=== PATIENT | male | born 1955 | race Caucasian/White ===

== ENCOUNTER 2017-10-10 15:12 | Emergency (ER) | payer MEDICAID ==
[~2017-10-10] VITALS: Ht 177.8 cm; Wt 179.6 kg
[~2017-10-10 15:12] MED LIST: ALBU8.5H8 IH; COMIN IH; DABI150C PO; DULO20CA50 PO; FURO-150 PO; GUAI120015 PO; GUAI120018 PO; HYDR-3566 PO; HYDR50TA3 PO; INSU100V2 SUBCUT; LANTUS SQ; LOSA50TA3 PO; METO25TA6 PO; OMEP20TA5 PO; PANT-47 PO; POTA8TAB3 PO; SPIIN IH; ZOLP10TA5 PO
[2017-10-10] MEDS ORDERED: ACYC-202 PO (17:20)
[2017-10-10] MEDS ORDERED: HYDR-568 PO (17:20)
[2017-10-10] MEDS ORDERED: [UNRECOGNIZED DRUG - OTHER] TOP (17:23)
[2017-10-10 17:31] VITALS: BP 144/64
== END 2017-10-10 17:32 | disposition home or self-care (01) ==
LOC: ER 15:13
DX: B02.9 Zoster without complications (principal); I10 Essential (primary) hypertension; I48.91 Unspecified atrial fibrillation; E78.00 Pure hypercholesterolemia, unspecified; J44.9 Chronic obstructive pulmonary disease, unspecified; E11.9 Type 2 diabetes mellitus without complications; Z79.4 Long term (current) use of insulin
CPT/HCPCS: 99283

== ENCOUNTER 2018-03-15 09:09 | Day surgery (SDC) | payer MEDICAID ==
[~2018-03-15] VITALS: Ht 177.8 cm; Wt 128.6 kg
[~2018-03-15 09:09] MED LIST changes: +[UNRECOGNIZED DRUG - OTHER] TOP
[2018-03-15 09:22] VITALS: BP 162/94
[2018-03-15] MEDS ORDERED: TIOT18CA3 (09:36)
[2018-03-15] MEDS ORDERED: DILT120C52 (09:37)
[2018-03-15] MEDS ORDERED: CARV12.5 PO (09:38)
[2018-03-15] MEDS ORDERED: DIPH25CA6 PO (09:39)
[2018-03-15] MEDS ORDERED: MIDAZolam 5mg/5ml vial ONE ×2 (09:44→09:47)
[2018-03-15] MEDS ORDERED: fentaNYL/PF 50MCG/1 ML 2ML syringe ONE ×3 (09:44→10:15)
[2018-03-15] MEDS ORDERED: LIDOcaine Viscous 15ml cup ONE (09:44)
[2018-03-15] MEDS ORDERED: diphenhydrAMINE 50 mg/ml inj ONE (10:22)
[2018-03-15 10:56] VITALS: BP 136/91
[2018-03-15 11:06] VITALS: BP 152/81
[2018-03-15 11:16] VITALS: BP 145/73
[2018-03-15 11:26] VITALS: BP 142/88
== END 2018-03-15 11:38 | disposition home or self-care (01) ==
LOC: GI LAB 09:09
PROVIDERS: ATTEND Internal Medicine Gastroenterology
DX: D12.4 Benign neoplasm of descending colon (principal); D12.3 Benign neoplasm of transverse colon; D12.8 Benign neoplasm of rectum; K56.2 Volvulus; K57.30 Diverticulosis of large intestine without perforation or abscess without bleeding; K64.8 Other hemorrhoids; E66.01 Morbid (severe) obesity due to excess calories; I48.91 Unspecified atrial fibrillation; I11.0 Hypertensive heart disease with heart failure; I50.9 Heart failure, unspecified; J44.9 Chronic obstructive pulmonary disease, unspecified; F17.210 Nicotine dependence, cigarettes, uncomplicated; Z86.010 Personal history of colon polyps; Z98.890 Other specified postprocedural states; Z79.4 Long term (current) use of insulin; Z79.899 Other long term (current) drug therapy
CPT/HCPCS: 45380; 45385; J1200; J2250; J3010; J7030; A4620; G0500

== ENCOUNTER 2018-06-16 12:41 | Emergency (ER) | payer MEDICAID ==
[~2018-06-16] VITALS: Ht 180.3 cm; Wt 164.0 kg
[~2018-06-16 12:41] MED LIST changes: +CARV12.5 PO; +DILT120C52; +DIPH25CA6 PO; -DULO20CA50 PO; -GUAI120015 PO; -HYDR-3566 PO; -INSU100V2 SUBCUT; -METO25TA6 PO; -OMEP20TA5 PO; +TIOT18CA3
[2018-06-16 12:48] VITALS: BP 138/72
[2018-06-16] MEDS ORDERED: HYDR-4383 PO (15:14)
[2018-06-16] MEDS ORDERED: TRAM50TA2 PO (15:16)
== END 2018-06-16 15:41 | disposition home or self-care (01) ==
LOC: ER 12:41
DX: L02.214 Cutaneous abscess of groin (principal); I48.91 Unspecified atrial fibrillation; E78.00 Pure hypercholesterolemia, unspecified; I10 Essential (primary) hypertension; J44.9 Chronic obstructive pulmonary disease, unspecified; E11.9 Type 2 diabetes mellitus without complications; F41.9 Anxiety disorder, unspecified; Z90.49 Acquired absence of other specified parts of digestive tract; Z87.442 Personal history of urinary calculi; Z79.899 Other long term (current) drug therapy; Z79.4 Long term (current) use of insulin
CPT/HCPCS: 10060; 99284

== ENCOUNTER 2018-07-24 15:14 | Emergency (ER) | payer MEDICARE, MEDICAID ==
[~2018-07-24] VITALS: Ht 177.8 cm; Wt 159.0 kg
[2018-07-24 16:08] VITALS: BP 94/60
[2018-07-24] MEDS ORDERED: LIDOcaine 1% 30ml preserv. free vial IJ ONE (18:35)
[2018-07-24] MEDS ORDERED: DOXY100C43 PO (18:40)
== END 2018-07-24 19:10 | disposition home or self-care (01) ==
LOC: ER 15:14
DX: L02.211 Cutaneous abscess of abdominal wall (principal); I48.91 Unspecified atrial fibrillation; E78.00 Pure hypercholesterolemia, unspecified; I10 Essential (primary) hypertension; J44.9 Chronic obstructive pulmonary disease, unspecified; E11.9 Type 2 diabetes mellitus without complications; Z90.49 Acquired absence of other specified parts of digestive tract; Z98.890 Other specified postprocedural states; Z79.4 Long term (current) use of insulin; Z79.899 Other long term (current) drug therapy
CPT/HCPCS: 10060; 99283

== ENCOUNTER 2020-02-01 20:19 | Emergency (ER) | payer MEDICARE, MEDICAID ==
[~2020-02-01] VITALS: Ht 180.3 cm; Wt 172.7 kg
[~2020-02-01 20:19] MED LIST changes: +DIPH25CA52 PO; -DIPH25CA6 PO
[2020-02-01 20:26] VITALS: BP 147/84
--- NOTE | 2020-02-01 22:50 | NUR ---
PT AWAITING PROVIDER. HE IS CURRENTLY SITTING ON THE GURNEY IN THE HALLWAY. NO DISTRES NOTED.
[2020-02-01] MEDS ORDERED: HYDR-4353 PO (23:38)
[2020-02-01] MEDS ORDERED: HYDROcodone/acetaminophen 10/325mg tab PO ONE (23:40)
== END 2020-02-01 23:55 | disposition home or self-care (01) ==
LOC: ER 20:20
DX: S22.41XA Multiple fractures of ribs, right side, initial encounter for closed fracture (principal); R07.81 Pleurodynia; I48.91 Unspecified atrial fibrillation; E78.00 Pure hypercholesterolemia, unspecified; I10 Essential (primary) hypertension; J44.9 Chronic obstructive pulmonary disease, unspecified; E11.9 Type 2 diabetes mellitus without complications; F41.9 Anxiety disorder, unspecified; Z87.01 Personal history of pneumonia (recurrent); Z87.442 Personal history of urinary calculi; Z90.49 Acquired absence of other specified parts of digestive tract; Z98.890 Other specified postprocedural states; Z79.4 Long term (current) use of insulin; Z79.899 Other long term (current) drug therapy; W01.0XXA Fall on same level from slipping, tripping and stumbling without subsequent striking against object, initial encounter; Y93.89 Activity, other specified; Y92.89 Other specified places as the place of occurrence of the external cause; Y99.8 Other external cause status
CPT/HCPCS: 71250; 99284